=== PATIENT | male | born 1950 | race Two or more races ===

== ENCOUNTER 2019-12-01 23:12 | Emergency (ER) | payer OTHER ==
[~2019-12-01] VITALS: Ht 167.6 cm; Wt 99.8 kg
[2019-12-02 00:29] LABS: Basophils # (auto) 0 10 ^3/uL (0-0.2); Basophils % (auto) 0.2 % (0.0-2.0); Eosinophils # (auto) 0.1 10 ^3/uL (0-0.8); Eosinophils % (auto) 1.6 % (0.0-7.0); Hematocrit 24.9 % (41.0-53.0); Hemoglobin 8.5 g/dL (13.5-17.5); Lymphocytes # (auto) 0.4 10 ^3/uL (0.4-5.4); Lymphocytes % (auto) 5.6 % (10.0-50.0); Mean Corpuscular Hemoglobin 32.2 pg (28.0-32.0); Mean Corpuscular Hgb Conc. 34.1 g/dL (32.0-36.0); Mean Corpuscular Volume 94.2 fL (80.0-100.0); Monocytes # (auto) 0.5 10 ^3/uL (0-1.3); Monocytes % (auto) 6.9 % (0.0-12.0); Neutrophils # (auto) 6.5 10 ^3/uL (1.6-8.6); Neutrophils % (auto) 85.7 % (37.0-80.0); Platelet Count (auto) 197 10^3/uL (140-450); Red Blood Cells 2.64 10^6/uL (4.5-5.90); Red Cell Distribution Width 13.9 % (11.8-14.3); White Blood Cell 7.6 10^3/uL (4.4-10.8)
[2019-12-02 00:45] LABS: INR 1.08 (0.9-1.15); Partial Thromboplastin Time 25.9 sec (23.64-32.05)
[2019-12-02 00:49] LABS: Albumin 2.8 g/dL (3.4-5.0); Calcium 7.9 mg/dL (8.5-10.1); Potassium 4.2 mmol/L (3.5-5.1)
[2019-12-02 00:52] LABS: BUN/Creatinine Ratio 62.3
[2019-12-02 01:00] LABS: Bilirubin, Total 0.2 mg/dL (0.2-1.0); Total Protein 4.9 g/dL (6.4-8.2)
[2019-12-02] MEDS ORDERED: SODIUM CHLORIDE 0.9% 1,000 ML IV ONE (01:00)
[2019-12-02 05:21] LABS: Urine Bacteria FEW /hpf (None Seen); Urine Blood Negative /uL (Negative); Urine Specific Gravity 1.024 (1.001-1.035); Urine WBC 1 /hpf (0 - 3)
[2019-12-02] MEDS ORDERED: SODIUM CHLORIDE 0.9% 500 ML IV ONE (05:45)
[2019-12-02 09:43] VITALS: BP 99/47
== END 2019-12-02 10:04 | disposition short-term general hospital (02) ==
LOC: ER 23:12 → EDBD 23:12 → ER 12-02 10:04
DX: R55 Syncope and collapse (principal); E86.0 Dehydration; R53.1 Weakness; I10 Essential (primary) hypertension; I48.91 Unspecified atrial fibrillation; E78.5 Hyperlipidemia, unspecified
CPT/HCPCS: 36415; 71045; 80053; 81001; 83735; 84443; 84484; 85025; 85379; 85610; 85730; 93005; 96360; 96361; 99285; J7030; J7040

== ENCOUNTER 2024-12-13 08:32 | Emergency (ER) | payer OTHER ==
[~2024-12-13] VITALS: Ht 167.6 cm; Wt 100.0 kg
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
[2024-12-13 09:30] VITALS: BP 165/91; PULSE 63; RESP 18; TEMP 98.6; O2SAT 98
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
[2024-12-13] MEDS ORDERED: TRAM-626 PO (09:53)
[2024-12-13] MEDS: HYDROcodone-ACET 5/325MG TAB PO ONE (09:57)
== END 2024-12-13 10:01 | disposition home or self-care (01) ==
LOC: ER 08:32 → EDBD 08:32 → EDUNIT# 08:32 → ER 10:01
DX: S83.91XA Sprain of unspecified site of right knee, initial encounter (principal); I10 Essential (primary) hypertension; I48.91 Unspecified atrial fibrillation; Z96.651 Presence of right artificial knee joint; Z79.899 Other long term (current) drug therapy; V49.40XA Driver injured in collision with unspecified motor vehicles in traffic accident, initial encounter; Y93.89 Activity, other specified; Y92.89 Other specified places as the place of occurrence of the external cause; Y99.8 Other external cause status
CPT/HCPCS: 73562

== ENCOUNTER 2024-12-14 19:43 | Emergency (ER) | payer OTHER ==
[~2024-12-14] VITALS: Ht 167.6 cm; Wt 100.0 kg
[~2024-12-14 19:43] MED LIST: TRAM-626 PO
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
[2024-12-14 20:30] LABS: Basophils # (auto) 0 10 ^3/uL (0-0.2); Basophils % (auto) 0.1 % (0.0-2.0); Eosinophils # (auto) 0.1 10 ^3/uL (0-0.8); Eosinophils % (auto) 0.8 % (0.0-7.0); Hematocrit 45.2 % (41.0-53.0); Hemoglobin 15.4 g/dL (13.5-17.5); Lymphocytes # (auto) 0.3 10 ^3/uL (0.4-5.4); Lymphocytes % (auto) 2.1 % (10.0-50.0); Mean Corpuscular Hemoglobin 32.2 pg (28.0-32.0); Mean Corpuscular Hgb Conc. 34.2 g/dL (32.0-36.0); Mean Corpuscular Volume 94.2 fL (80.0-100.0); Monocytes # (auto) 0.9 10 ^3/uL (0-1.3); Monocytes % (auto) 7.1 % (0.0-12.0); Neutrophils # (auto) 10.9 10 ^3/uL (1.6-8.6); Neutrophils % (auto) 89.9 % (37.0-80.0); Platelet Count (auto) 196 10^3/uL (140-450); Red Cell Distribution Width 13.7 % (11.8-14.3); White Blood Cell 12.1 10^3/uL (4.4-10.8)
[2024-12-14 20:42] LABS: Chloride 100 mmol/L (98-107); Sodium 139 mmol/L (136-145)
[2024-12-14 20:43] LABS: Anion Gap 7 (5-15)
[2024-12-14 20:44] LABS: Calcium 10.2 mg/dL (8.7-10.4)
[2024-12-14 20:48] LABS: BUN/Creatinine Ratio 11.4 (10.0-20.0); Blood Urea Nitrogen 10 mg/dL (9-23)
[2024-12-14] MEDS: HYDROcodone-ACET 5/325MG TAB PO ONE (20:48)
[2024-12-14 20:51] VITALS: PULSE 90; RESP 16; O2SAT 92
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
[2024-12-14 21:42] LABS: Carbon Dioxide 32 mmol/L (20-31); Glucose 128 mg/dL (74-106)
[2024-12-15 00:14] VITALS: BP 156/79; PULSE 89; RESP 19; TEMP 98.3; O2SAT 100
== END 2024-12-15 00:19 | disposition home or self-care (01) ==
LOC: ER 19:43 → EDBD 19:43 → ER 12-15 00:19
DX: S83.8X1A Sprain of other specified parts of right knee, initial encounter (principal); I10 Essential (primary) hypertension; I48.91 Unspecified atrial fibrillation; E78.5 Hyperlipidemia, unspecified; V49.88XA Car occupant (driver) (passenger) injured in other specified transport accidents, initial encounter; Y93.I9 Activity, other involving external motion; Y92.488 Other paved roadways as the place of occurrence of the external cause; Y99.8 Other external cause status
CPT/HCPCS: 36415; 73501; 80048; 85025